=== PATIENT | male | born 1980 | race Caucasian/White ===

== ENCOUNTER 2016-10-19 13:52 | Emergency (ER) | payer SELFPAY ==
[~2016-10-19] VITALS: Ht 180.3 cm; Wt 86.2 kg
== END 2016-10-19 14:55 | disposition short-term general hospital (02) ==
LOC: ER 13:52
DX: S50.812A Abrasion of left forearm, initial encounter (principal); S60.812A Abrasion of left wrist, initial encounter; Z23 Encounter for immunization; X58.XXXA Exposure to other specified factors, initial encounter